=== PATIENT | male | born 1950 | race Caucasian/White ===

== ENCOUNTER 2021-08-28 16:50 | Inpatient (IN) | payer OTHER ==
[~2021-08-28] VITALS: Ht 179.1 cm; Wt 85.3 kg
[2021-08-28] MEDS ORDERED: TAMS-1 PO (19:38)
[2021-08-28 19:45] VITALS: BP 141/48
[2021-08-28] MEDS ORDERED: PARO-37 PO (19:47)
[2021-08-28 20:00] VITALS: BP 148/64
[2021-08-28] MEDS: DOPAMINE 800MG/D5 250ML 250 ML IV PRN (20:12)
[2021-08-28] MEDS ORDERED: LACTATED RINGERS 1000ML 1,000 ML IV SCH (20:30)
[2021-08-28 20:57] LABS: BASOPHILS % (AUTO) 0.4 % (0.0-5.0); EOSINOPHILS % (AUTO) 0.1 % (0.0-8.0); HEMATOCRIT 43.6 % (42-54); LYMPHOCYTES % (AUTO) 7.6 % (21.0-51.0); MEAN CORPUSCULAR HEMOGLOBIN 32.1 pg (27.0-33.0); MEAN CORPUSCULAR HGB CONC 35.3 g/dL (32.0-36.0); MEAN CORPUSCULAR VOLUME 90.8 fL (79-99); NEUTROPHILS % (AUTO) 86.3 % (40.0-77.0); PLATELET COUNT (AUTO) 159 K/uL (130-400); RED CELL DISTRIBUTION WIDTH 12.6 % (11.0-15.5); WHITE BLOOD COUNT (AUTO) 10.3 K/uL (4.8-10.8)
[2021-08-28 21:00] VITALS: BP 141/58
[2021-08-28 21:09] LABS: INR 1.05 (0.85-1.15); PROTHROMBIN TIME 11.4 SEC (9.6-11.6)
[2021-08-28 21:10] LABS: PARTIAL THROMBOPLASTIN TIME 24.8 SEC (26.3-35.5)
[2021-08-28 21:12] LABS: ALBUMIN 4.1 g/dL (3.5-5.0); BILIRUBIN,TOTAL 0.8 mg/dL (0.2-1.0); CREATININE 1.2 mg/dL (0.5-1.5); POTASSIUM 4.1 mmol/L (3.5-5.1); TOTAL PROTEIN, SERUM 7.1 g/dL (6.0-8.3)
[2021-08-28 22:00] VITALS: BP 141/56
[2021-08-28 23:00] VITALS: BP 141/56
[2021-08-29] VITALS (8 sets, daily range): BP systolic 128–162; BP diastolic 62–84
[2021-08-29 04:06] LABS: MAGNESIUM 2.2 mg/dL (1.80-2.40); PHOSPHORUS 3.7 mg/dL (2.5-4.9); POTASSIUM 4.2 mmol/L (3.5-5.1); THYROID STIMULATING HORMONE 0.36 uIU/mL (0.36-3.74)
[2021-08-29] MEDS ORDERED: CEFAZOLIN SODIUM 2 GM in 0.9%NACL 50ML 50 ML IV PRN (07:30)
[2021-08-29] MEDS: DOPAMINE 800MG/D5 250ML 250 ML IV PRN (07:34)
[2021-08-29] MEDS: CEFAZOLIN SODIUM 1 GM VIAL IVP SCH ×2 (08:00→19:38)
[2021-08-29] MEDS: FAMOTIDINE 20MG VIAL IV SCH ×2 (09:08→19:38)
[2021-08-29] MEDS ORDERED: ONDANSETRON 4MG INJ IVP PRN (09:30)
[2021-08-29] MEDS ORDERED: MEPERIDINE-PF 25 MG/ML SYG ONE ×3 (11:41→12:34)
[2021-08-29] MEDS ORDERED: BUPIVACAINE/PF 0.25% 30ML VIAL IJ ONE (11:41)
[2021-08-29] MEDS ORDERED: LIDOCAINE HCL 1% MDV 50ML VIAL ONE (11:42)
[2021-08-29] MEDS ORDERED: MIDAZOLAM HCL 1 MG/ML 2ML VIAL ONE ×3 (11:42→12:34)
[2021-08-29] MEDS ORDERED: IODIXANOL 320 MG/ML 100 ML VIAL ONE (12:19)
[2021-08-29] MEDS ORDERED: ACETAMINOPHEN WITH CODEINE 1 TAB TAB PO PRN (13:30)
[2021-08-30] VITALS: BP 115/54
[2021-08-30 04:00] VITALS: BP 121/61
[2021-08-30 07:30] VITALS: BP 109/79
[2021-08-30 08:43] LABS: HEMATOCRIT 44.2 % (42-54); MEAN CORPUSCULAR HEMOGLOBIN 32.3 pg (27.0-33.0); MEAN CORPUSCULAR HGB CONC 35.5 g/dL (32.0-36.0); MEAN CORPUSCULAR VOLUME 90.9 fL (79-99); RED BLOOD CELL COUNT(AUTO) 4.86 MIL/uL (4.50-6.20); WHITE BLOOD COUNT (AUTO) 6.7 K/uL (4.8-10.8)
[2021-08-30 08:55] LABS: CREATININE 1.1 mg/dL (0.5-1.5)
[2021-08-30] MEDS: CEFAZOLIN SODIUM 1 GM VIAL IVP SCH (09:13)
[2021-08-30 11:30] VITALS: BP 106/64
== END 2021-08-30 14:00 | disposition home or self-care (01) | DRG 244 ==
LOC: 2DH 16:50
PROVIDERS: ADMIT Internal Medicine; ATTEND Internal Medicine
PROC: 0JH606Z Insertion of Pacemaker, Dual Chamber into Chest Subcutaneous Tissue and Fascia, Open Approach (ICD-10-PCS; principal; 2021-08-29)
PROC: 02H63JZ Insertion of Pacemaker Lead into Right Atrium, Percutaneous Approach (ICD-10-PCS; 2021-08-29)
PROC: 02HK3JZ Insertion of Pacemaker Lead into Right Ventricle, Percutaneous Approach (ICD-10-PCS; 2021-08-29)
PROC: B5171ZZ Fluoroscopy of Left Subclavian Vein using Low Osmolar Contrast (ICD-10-PCS; 2021-08-29)
DX: I44.2 Atrioventricular block, complete (principal); F32.A Depression, unspecified; F41.9 Anxiety disorder, unspecified; N40.0 Benign prostatic hyperplasia without lower urinary tract symptoms; L40.9 Psoriasis, unspecified; Z20.822 Contact with and (suspected) exposure to COVID-19
CPT/HCPCS: 33208; 36415; 71045; 80048; 80053; 83735; 84100; 84443; 85025; 85027; 85610; 85730; 86850; 86900; 86901; 87635; 93005; 93306; 93356; 99156; 99157; C1785; J0690; J1265; J2175; J2250; J2405; J3490; J7120; Q9967